=== PATIENT | female | born 1950 | race Caucasian/White ===

== ENCOUNTER 2018-08-16 04:22 | Outpatient (CLI) | payer MEDICARE | END 2018-08-16 23:59 | disposition home or self-care (01) | LOC: DIABETIC 04:22 | PROVIDERS: ATTEND Family Medicine | DX: Z71.3 Dietary counseling and surveillance (principal); R73.02 Impaired glucose tolerance (oral); E11.9 Type 2 diabetes mellitus without complications; E66.01 Morbid (severe) obesity due to excess calories; Z68.39 Body mass index [BMI] 39.0-39.9, adult | CPT/HCPCS: G0108 ==

== ENCOUNTER 2021-12-02 14:32 | Inpatient (IN) | payer MEDICARE, BC ==
[~2021-12-02] VITALS: Ht 160 cm; Wt 93.2 kg
[2021-12-02 15:10] LABS: BASOPHILS # (AUTO) 0.1 X10'3 (0-0.2); BASOPHILS % (AUTO) 1.3 % (0-1); EOSINOPHILS # (AUTO) 0.1 X10'3 (0-0.9); EOSINOPHILS % (AUTO) 1.4 % (0-6); HEMATOCRIT 44.4 % (35.0-45.0); HEMOGLOBIN 14.5 g/dl (12.0-16.0); LYMPHOCYTES # (AUTO) 1.8 X10'3 (1.1-4.8); LYMPHOCYTES % (AUTO) 31.7 % (21-51); MEAN CORPUSCULAR HEMOGLOBIN 28.6 PG (27.0-31.0); MEAN CORPUSCULAR HGB CONC 32.7 g/dL (33.0-36.5); MEAN CORPUSCULAR VOLUME 87.4 FL (78-98); MEAN PLATELET VOLUME 8.8 FL (7.4-10.4); MONOCYTES # (AUTO) 0.7 X10'3 (0-0.9); MONOCYTES % (AUTO) 12.2 % (2-12); NEUTROPHILS # (AUTO) 3.1 X10'3 (1.8-7.7); NEUTROPHILS % (AUTO) 53.4 % (42-75); PLATELET COUNT 228 X10'3 (140-440); RED BLOOD COUNT 5.07 X10'6 (4.20-5.60); RED CELL DISTRIBUTION WIDTH 15.4 % (11.5-14.5); WHITE BLOOD COUNT 5.8 X10'3 (4.5-11.0)
[2021-12-02 15:39] LABS: ALANINE AMINOTRANSFERASE 33 U/L (12-78); ALBUMIN 3.3 G/DL (3.4-5.0); ALBUMIN/GLOBULIN RATIO 0.9 (1.1-1.5); ALKALINE PHOSPHATASE 101 IU/L (46-116); ANION GAP 7 (8-16); ASPARTATE AMINO TRANSFERASE 18 U/L (10-37); BILIRUBIN,TOTAL 0.4 MG/DL (0.1-1.0); BLOOD UREA NITROGEN 14 MG/DL (7-18); BUN/CREATININE RATIO 17.5 (6.6-38.0); CALCIUM 8.8 MG/DL (8.5-10.1); CHLORIDE 108 MMOL/L (99-107); GLUCOSE 104 MG/DL (70-104); POTASSIUM 3.8 MMOL/L (3.5-5.1); SODIUM 141 MMOL/L (135-145); TOTAL CARBON DIOXIDE 26.4 MMOL/L (24-32); eGFR 71 ML/MIN
[2021-12-02] MEDS ORDERED: diltiazem 5mg/ml 5ml inj. IV ONE (15:40)
[2021-12-02] MEDS ORDERED: normal saline 1000ml 1,000 ML IV ONE (15:40)
[2021-12-02] MEDS ORDERED: diltiazem-D5W 125mg/125ml 125 ML IV SCH (16:25)
[2021-12-02] MEDS ORDERED: mag hydrox/Alum hydrox/simeth 30ml oral suspension PO PRN (20:10)
[2021-12-02] MEDS ORDERED: magnesium hydroxide 30ml (MOM) UD suspension PO PRN (20:10)
[2021-12-02] MEDS ORDERED: morphine 2 MG/ML inj. syringe IV PRN ×2 (20:10)
[2021-12-02] MEDS ORDERED: ondansetron/PF 4mg/2ml inj IV PRN (20:10)
--- NOTE | 2021-12-02 22:51 | NUR ---
DR LAKE IN ROOM W/ PT
--- NOTE | 2021-12-02 22:55 | NUR ---
MEDS LATE D/T TO ANOTHER PT BECOMING CRITICAL AND LOW STAFF
[2021-12-02 23:37] VITALS: BP 130/95
[2021-12-02] MEDS: apixaban 5mg tablet PO SCH (23:49)
[2021-12-02] MEDS: sotalol 80mg tablet PO SCH (23:49)
[2021-12-03] VITALS (7 sets, daily range): BP systolic 83–129; BP diastolic 39–98
--- NOTE | 2021-12-03 06:51 | NUR ---
Patient in room PCU 3021. I have received report from MAITE BRIAN, and had the opportunity to ask questions and assume patient care.
[2021-12-03 07:31] LABS: ALBUMIN 2.9 G/DL (3.4-5.0); ANION GAP 6 (8-16); BLOOD UREA NITROGEN 12 MG/DL (7-18); BUN/CREATININE RATIO 16.2 (6.6-38.0); CALCIUM 8.5 MG/DL (8.5-10.1); CHLORIDE 110 MMOL/L (99-107); CREATININE 0.74 MG/DL (0.40-0.90); GLUCOSE 101 MG/DL (70-104); POTASSIUM 3.8 MMOL/L (3.5-5.1); SODIUM 142 MMOL/L (135-145); TOTAL CARBON DIOXIDE 25.8 MMOL/L (24-32); eGFR 78 ML/MIN
[2021-12-03] MEDS: sotalol 80mg tablet PO SCH (08:25)
[2021-12-03] MEDS: apixaban 5mg tablet PO SCH ×2 (08:26→19:50)
[2021-12-03] MEDS: docusate sod 100mg capsule PO SCH ×2 (08:26→19:51)
--- NOTE | 2021-12-03 09:54 | NUR ---
PAGE SENT PAGER ID: [phone] MESSAGE: [phone], ROSA VELASQUEZ, PT REPORTS SHE'S A CELIAC. MAY I ORDER HER A GLUTEN FREE DIET? THANK YOU, MARYCRUZ [phone]
[2021-12-03] MEDS ORDERED: LOSA25TA41 PO (13:08)
[2021-12-03] MEDS ORDERED: LEVO125T8 PO (13:08)
[2021-12-03] MEDS ORDERED: CARV6.253 PO (13:08)
--- NOTE | 2021-12-03 15:25 | NUR ---
PAGE SENT PAGER ID: [phone] MESSAGE: [phone], ROSA VELASQUEZ PT REPORTS THAT SHE HAS BEEN IN CONTACT WITH HER INSURANCE AND THEY COVER ELIQUIS. SHE WOULD LIKE TO CONTINUE WITH ELIQUIS. THANK YOU, MARYCRUZ Rodriguez [phone]
[2021-12-03] MEDS ORDERED: ondansetron 4mg rapidly disintigrating tab PO PRN (16:30)
--- NOTE | 2021-12-03 16:56 | NUR ---
3021, ROSA VELASQUEZ, PT IS BRADYCARDIC, 46 - 52. ASYMPTOMATIC. THANK YOU, CLARICE [phone] Addendum: 12/03/21 at 1658 by Clarice Rivera RN promotional table spacer promotional table spacer Page Sent PAGER ID: [phone] MESSAGE: [phone], ROSA VELASQUEZ, PT IS BRADYCARDIC, 46 - 52. ASYMPTOMATIC. THANK YOU, CLARICE [phone]
--- NOTE | 2021-12-03 17:59 | NUR ---
DR. GROSSMAN ASKED THIS NURSE TO NOTIFY DR. WILLIAMSON OF PT'S BRADYCARDIA. MESSAGE LEFT WITH CALL SERVICE.
--- NOTE | 2021-12-03 18:22 | NUR ---
Problems reprioritized. Patient report given, questions answered & plan of care reviewed with MAITE BRIAN. SNEHAL WAS TOLD TO PHONE DR. WILLIAMSON IF HE DOESN'T HEAR FROM HIM BY 1830.
--- NOTE | 2021-12-03 18:36 | NUR ---
Dr. Sanchez called back to get update on patients current status. No new order as of the moment.
[2021-12-03] MEDS ORDERED: carvedilol 6.25mg tablet PO SCH (20:00)
[2021-12-03] MEDS ORDERED: warfarin 5mg tablet PO ONE (21:00)
[2021-12-04 02:00] VITALS: BP 89/39
[2021-12-04 02:30] VITALS: BP 90/45
[2021-12-04 04:00] VITALS: BP 93/39
[2021-12-04 06:00] VITALS: BP 130/59
[2021-12-04 06:09] LABS: ALBUMIN 2.7 G/DL (3.4-5.0); ANION GAP 9 (8-16); BLOOD UREA NITROGEN 14 MG/DL (7-18); BUN/CREATININE RATIO 18.9 (6.6-38.0); CALCIUM 8.9 MG/DL (8.5-10.1); CHLORIDE 108 MMOL/L (99-107); CREATININE 0.74 MG/DL (0.40-0.90); GLUCOSE 91 MG/DL (70-104); POTASSIUM 3.9 MMOL/L (3.5-5.1); SODIUM 141 MMOL/L (135-145); TOTAL CARBON DIOXIDE 24.4 MMOL/L (24-32); eGFR 78 ML/MIN
--- NOTE | 2021-12-04 06:35 | NUR ---
Patient in room PCU 3021. I have received report from Marck ARORA and had the opportunity to ask questions and assume patient care.
[2021-12-04] MEDS: docusate sod 100mg capsule PO SCH (08:00)
[2021-12-04] MEDS ORDERED: levoTHYROXINE 125mcg tablet PO SCH (08:00)
[2021-12-04] MEDS: apixaban 5mg tablet PO SCH (08:30)
[2021-12-04 11:00] VITALS: BP 135/64
[2021-12-04 15:00] VITALS: BP 133/68
--- NOTE | 2021-12-04 15:06 | NUR ---
Paged Dr. Waters to let him know the results of the EKG were in the patients chart. PAGER ID: [phone] MESSAGE: [phone], Divya Metzger. EKG is done and report is in the chart. Ana THURMAN
[2021-12-04] MEDS ORDERED: SOTA80TA73 PO (15:32)
[2021-12-04] MEDS ORDERED: APIX5TAB3 PO (15:32)
--- NOTE | 2021-12-04 16:19 | NUR ---
Paged Dr. Waters with pt concerns for why she is being discharged on sotalol. She wants to talk to the doctor before she is discharged. PAGER ID: [phone] MESSAGE: [email or web address], Divya Metzger. Pt is concerned about being discharged on sotalol. She wants to talk to you about why she is being prescribed this medication with bradycardia. Ana [facility] [id number].
--- NOTE | 2021-12-04 18:19 | NUR ---
Pt stable for discharge per Dr. Waters orders. All discharge instructions reviewed with patient and all questions answered. PIV discontinued, cannula intact. Tele discontinued. All belongings collected and sent with patient. wheeled to lobby via nursing staff and taken home by family.
--- NOTE | 2021-12-11 14:35 | NUR ---
Case Management DC follow up:Spoke with Patient via telephone. s/p Patient Reports:Denies fast irregular heart beats, heart rate in the 50,s. denies nausea, sob. Verbalizes confusion regarding medication and with discharge instructions.[place] that her concerns were not addressed regarding Sotalol being discontinued while in hospital,due to low heart rate of "30", and then prescribed to take upon discharge.Declined assistance with calling at this time; verbalizing she has appointment in am 12/12/21.Verbalizes understanding of s/s that warrant 911/ER visit for further evaluation.Verbalizes appointment scheduled with Dr. Zayas 12/15/21. Verbalizes staff were fine, except with discharge instructions.
== END 2021-12-04 16:51 | disposition home or self-care (01) | DRG 310 ==
LOC: ER 14:32 → ED HOLD 20:16 → PCU 3S 23:00
PROVIDERS: ADMIT Internal Medicine; ATTEND Family Medicine
PROC: 5A09357 Assistance with Respiratory Ventilation, Less than 24 Consecutive Hours, Continuous Positive Airway Pressure (ICD-10-PCS; principal; 2021-12-03)
DX: I48.0 Paroxysmal atrial fibrillation (principal); E03.9 Hypothyroidism, unspecified; G47.30 Sleep apnea, unspecified; I10 Essential (primary) hypertension; K21.9 Gastro-esophageal reflux disease without esophagitis; M54.2 Cervicalgia; E66.9 Obesity, unspecified; R00.1 Bradycardia, unspecified; M19.90 Unspecified osteoarthritis, unspecified site; M79.7 Fibromyalgia; Z79.01 Long term (current) use of anticoagulants; Z98.1 Arthrodesis status; Z79.82 Long term (current) use of aspirin; Z85.828 Personal history of other malignant neoplasm of skin; Z88.5 Allergy status to narcotic agent; Z90.49 Acquired absence of other specified parts of digestive tract; Z68.36 Body mass index [BMI] 36.0-36.9, adult
CPT/HCPCS: 36415; 71045; 80048; 80053; 84443; 84484; 85025; 85610; 87081; 93005; 96361; 96365; 96376; 97161; 99285; G0378; J3490; J7030